=== PATIENT | male | born 1960 | race Caucasian/White ===

== ENCOUNTER 2017-11-23 11:28 | Emergency (ER) | payer OTHER ==
[~2017-11-23] VITALS: Ht 175.3 cm; Wt 75.0 kg
[2017-11-23 11:44] VITALS: BP 111/67; PULSE 74; RESP 16; TEMP 97.6; O2SAT 98
--- NOTE | 2017-11-23 12:07 | PD ---
HPI Chief Complaint: Musculoskeletal Complaint Time Seen by Provider: 12:02 Travel History International Travel<30 days: No Contact w/Intl Traveler<30days: No Traveled to known affect area: No History of Present Illness HPI Patient is a 57-year-old male presenting to the emergency department from the [place] clinic after having what he calls a catatonic state. Patient states that he was alert but was unable to speak or move his body. He reports that this happens once every 6 months but the last time it happened was in August. Patient reports being unable to move his arms or legs at this time however he was flailing his body for EVAC. He denies any chest pain, shortness breath, headache, fever, chills, nausea or vomiting. He denies any history of seizures. He does have a history of restless leg and neuropathy. He is followed at the [place] clinic. Symptom onset is unknown, symptom severity is mild to moderate. Patient states the symptoms are alleviated by Ativan. PFSH Past Medical History Musculoskeletal: Yes (Restless leg, neuropathy) Social History Tobacco Use: Yes Allergies-Medications (Allergen,Severity, Reaction): Coded Allergies: Sulfa (Sulfonamide Antibiotics) (Verified Allergy, Severe, Hives, 11/23/17) Review of Systems Except as stated in HPI: all other systems reviewed are Neg Cardiovascular: No: Chest Pain or Discomfort Respiratory: No: Shortness of Breath Gastrointestinal: No: Abdominal Pain Neurologic: Positive: Weakness, Paresthesia, Sensory Disturbance Physical Exam Narrative GENERAL: Well-developed, well-nourished, alert male. Presenting in no acute distress. SKIN: Warm and dry. HEAD: Atraumatic. Normocephalic. EYES: Pupils equal and round. No scleral icterus. No injection or drainage. ENT: No nasal bleeding or discharge. Mucous membranes pink and moist. NECK: Trachea midline. No JVD. CARDIOVASCULAR: Regular rate and rhythm. RESPIRATORY: No accessory muscle use. Clear to auscultation. Breath sounds equal bilaterally. GASTROINTESTINAL: Abdomen soft, non-tender, nondistended. Hepatic and splenic margins not palpable. MUSCULOSKELETAL: Extremities without clubbing, cyanosis, or edema. No obvious deformities. NEUROLOGICAL: Awake and alert. No obvious cranial nerve deficits. Patient unable to lift or move arms or legs. 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 Speech is slow. PSYCHIATRIC: Flat mood and affect; insight and judgment normal. Data Data Last Documented VS Vital Signs Date Time Temp Pulse Resp B/P (MAP) Pulse Ox O2 Delivery O2 Flow Rate FiO2 11/23/17 11:44 97.6 74 16 111/67 (82) 98 Orders Orders Complete Blood Count With Diff (11/23/17 11:49) Comprehensive Metabolic Panel (11/23/17 11:49) Magnesium (Mg) (11/23/17 11:49) Iv Access Insert/Monitor (11/23/17 11:49) Creatine Kinase (Cpk) (11/23/17 11:49) Ct Brain W/O Iv Contrast(Rout) (11/23/17 ) Lorazepam (Ativan) (11/23/17 13:30) Labs Laboratory Tests Test 11/23/17 12:00 White Blood Count 9.8 TH/MM3 Red Blood Count 4.85 MIL/MM3 Hemoglobin 14.8 GM/DL Hematocrit 43.1 % Mean Corpuscular Volume 88.9 FL Mean Corpuscular Hemoglobin 30.6 PG Mean Corpuscular Hemoglobin Concent 34.4 % Red Cell Distribution Width 13.9 % Platelet Count 317 TH/MM3 Mean Platelet Volume 6.9 FL Neutrophils (%) (Auto) 77.3 % Lymphocytes (%) (Auto) 13.0 % Monocytes (%) (Auto) 7.5 % Eosinophils (%) (Auto) 1.4 % Basophils (%) (Auto) 0.8 % Neutrophils # (Auto) 7.5 TH/MM3 Lymphocytes # (Auto) 1.3 TH/MM3 Monocytes # (Auto) 0.7 TH/MM3 Eosinophils # (Auto) 0.1 TH/MM3 Basophils # (Auto) 0.1 TH/MM3 CBC Comment DIFF FINAL Differential Comment Blood Urea Nitrogen 17 MG/DL Creatinine 1.49 MG/DL Random Glucose 76 MG/DL Total Protein 7.5 GM/DL Albumin 3.7 GM/DL Calcium Level 9.6 MG/DL Magnesium Level 2.0 MG/DL Alkaline Phosphatase 94 U/L Aspartate Amino Transf (AST/SGOT) 16 U/L Alanine Aminotransferase (ALT/SGPT) 18 U/L Total Bilirubin 0.5 MG/DL Sodium Level 138 MEQ/L Potassium Level 4.3 MEQ/L Chloride Level 106 MEQ/L Carbon Dioxide Level 19.8 MEQ/L Anion Gap 12 MEQ/L Estimat Glomerular Filtration Rate 48 ML/MIN Total Creatine Kinase 249 U/L MDM Medical Decision Making Medical Screen Exam Complete: Yes Emergency Medical Condition: Yes Interpretation(s) Vital Signs Date Time Temp Pulse Resp B/P (MAP) Pulse Ox O2 Delivery O2 Flow Rate FiO2 11/23/17 11:44 97.6 74 16 111/67 (82) 98 Differential Diagnosis Metabolic abnormality versus muscle spasms versus mood disorder versus other Narrative Course Patient is a 57-year-old male presenting to the emergency room for evaluation of muscle spasms. Vital signs are stable, labs and imaging ordered and pending. Chemistry with no acute findings CBC with no acute findings CT scan of the brain with no acute abnormality. 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 This likely explains patient's symptoms. He initially reported that Ativan helps his symptoms. He will be given 1 dose of Ativan now. Patient will be discharged home, he is encouraged to follow-up with the [place] clinic. He is encouraged to return to emergency department for any new or worsening symptoms. Discussed with my attending. Additionally patient is moving all extremities at this time. There are no focal deficits. Patient verbalized understanding of discharge instructions. Patient stable for discharge. Diagnosis Primary Impression: Conversion disorder Referrals: Primary Care Physician Patient Instructions: Conversion Disorder (ED), General Instructions Additional Instructions: Follow-up with your primary doctor at the [facility] Return to emergency department for any new or worsening symptoms Med/Other Pt SpecificInfo: No Change to Meds Disposition: 01 DISCHARGE HOME Condition: Stable Jaimie Jain Nov 23, 2017 12:07
[2017-11-23 12:25] LABS: AUTOMATED NEUTROPHIL # 7.5 TH/MM3 (1.8-7.7); BASOPHIL # 0.1 TH/MM3 (0-0.2); BASOPHIL % 0.8 % (0.0-2.0); EOSINOPHIL # 0.1 TH/MM3 (0-0.4); EOSINOPHIL % 1.4 % (0.0-4.0); HEMATOCRIT 43.1 % (39.0-51.0); HEMOGLOBIN 14.8 GM/DL (13.0-17.0); LYMPHOCYTE # 1.3 TH/MM3 (1.0-4.8); MEAN CELL VOLUME 88.9 FL (80.0-100.0); MEAN CORPUSCULAR HEMOGLOBIN 30.6 PG (27.0-34.0); MEAN CORPUSCULAR HGB CONC 34.4 % (32.0-36.0); MEAN PLATELET VOLUME 6.9 FL (7.0-11.0); MONO % 7.5 % (0.0-8.0); MONOCYTE # 0.7 TH/MM3 (0-0.9); NEUT % 77.3 % (16.0-70.0); PLATELET COUNT 317 TH/MM3 (150-450); RED BLOOD COUNT 4.85 MIL/MM3 (4.50-5.90); RED CELL DISTRIBUTION WIDTH 13.9 % (11.6-17.2); WHITE BLOOD COUNT 9.8 TH/MM3 (4.0-11.0)
--- NOTE | 2017-11-23 12:34 | RADRPT ---
EXAM DATE/TIME: 11/23/2017 12:18 [facility] COMPARISON: No previous studies available for comparison. INDICATIONS : Loss of muscle control. RADIATION DOSE: CTDIvol (mGy) MEDICAL HISTORY : None SURGICAL HISTORY : None. ENCOUNTER: Initial ACUITY: 1 day PAIN SCALE: 0/10 LOCATION: cranial TECHNIQUE: Multiple contiguous axial images were obtained of the head. Using automated exposure control and adj ustment of the mA and/or kV according to patient size, radiation dose was kept as low as reasonably a chievable to obtain optimal diagnostic quality images. DICOM format image data is available electro nically for review and comparison. FINDINGS: CEREBRUM: The ventricles are normal for age. No evidence of midline shift, mass lesion, hemorrhage or acute in farction. No extra-axial fluid collections are seen. POSTERIOR FOSSA: The cerebellum and brainstem are intact. The 4th ventricle is midline. The cerebellopontine angle i s unremarkable. EXTRACRANIAL: There is mucoperiosteal thickening within the maxillary sinuses. SKULL: The calvaria is intact. No evidence of skull fracture. CONCLUSION: No acute intracranial abnormality is identified. Tripp Marsh MD on November 23, 2017 at 12:31 Board Certified Radiologist. This report was verified electronically.
[2017-11-23 12:45] LABS: ALT (GPT) 18 U/L (12-78)
[2017-11-23 12:47] LABS: ALKALINE PHOSPHATASE 94 U/L (45-117); TOTAL BILIRUBIN ADULT 0.5 MG/DL (0.2-1.0); TOTAL PROTEIN 7.5 GM/DL (6.4-8.2)
[2017-11-23 13:09] LABS: ALBUMIN 3.7 GM/DL (3.4-5.0); AST (GOT) 16 U/L (15-37); BICARBONATE 19.8 MEQ/L (21.0-32.0); BLOOD UREA NITROGEN 17 MG/DL (7-18); CALCIUM 9.6 MG/DL (8.5-10.1); CHLORIDE 106 MEQ/L (98-107); CREATININE 1.49 MG/DL (0.60-1.30); GLOMERULAR FILTRATION RATE 48 ML/MIN (>89); GLUCOSE,RANDOM 76 MG/DL (74-106); SODIUM (NA) 138 MEQ/L (136-145)
[2017-11-23] MEDS ORDERED: ALPRAZolam 0.25 MG TAB PO ONE (13:30)
[2017-11-23] MEDS ORDERED: LORazepam 0.5 MG TAB PO ONE (13:30)
== END 2017-11-23 14:36 | disposition home or self-care (01) ==
LOC: NEDAMB 11:28
DX: F44.9 Dissociative and conversion disorder, unspecified (principal); M62.838 Other muscle spasm; Z72.0 Tobacco use
CPT/HCPCS: 70450; 80053; 82550; 83735; 85025; 99284